=== PATIENT | female | born 1960 | race Caucasian/White ===

== ENCOUNTER 2018-08-20 06:57 | Day surgery (SDC) | payer BC ==
[2018-08-20] MEDS ORDERED: fentaNYL 100 MCG/2 ML SDV ONE (07:17)
[2018-08-20] MEDS ORDERED: Propofol 200 MG/20 ML SDV ONE (07:17)
[2018-08-20] MEDS ORDERED: Midazolam 1 MG/ML 2 ML SDV ONE (07:17)
[2018-08-20] MEDS ORDERED: Sodium Chloride 0.9% 1,000 ML IV SCH (07:30)
[2018-08-20 09:56] VITALS: BP 114/62
--- NOTE | 2018-08-21 08:15 | OR ---
DATE OF PROCEDURE: 08/20/2018 SURGEON: Jonah Koehler MD PROCEDURE: EGD. FINDINGS: Mild inflammation at the GE junction (biopsied in all 4 quadrants). COMPLICATIONS: None. METER READING CLERK: None. PREOPERATIVE DIAGNOSIS: Epigastric pain. POSTOPERATIVE DIAGNOSIS: Epigastric pain. RISKS: Risks, benefits, alternatives, and limitations including, but not limited to infection, bleeding, and perforation were explained to the patient, who wished to proceed. PROCEDURE IN DETAIL: The patient was placed in left lateral decubitus position. The EGD scope was introduced and advanced atraumatically to the second part of the duodenum. No evidence of duodenitis or ulceration. On retroflexion, no significant hernia. No gastritis. No ulceration. The GE junction showed mild inflammation at the GE junction, which was biopsied x8 using cold biopsy forceps. The remainder of the esophagus was normal. The patient tolerated the procedure well. Jonah Koehler MD /[id number]
== END 2018-08-20 10:06 | disposition home or self-care (01) ==
LOC: JP.SDS 06:57
PROVIDERS: ATTEND Surgery
DX: K21.0 Gastro-esophageal reflux disease with esophagitis (principal); E78.5 Hyperlipidemia, unspecified; E78.1 Pure hyperglyceridemia; E66.9 Obesity, unspecified; Z68.34 Body mass index [BMI] 34.0-34.9, adult; Z88.0 Allergy status to penicillin
CPT/HCPCS: 43239; 88305; J2250; J2704; J3010; J7030